=== PATIENT | female | born 2000 | race African-American/Black ===

== ENCOUNTER 2021-11-27 12:50 | Emergency (ER) | payer OTHER, SELFPAY ==
--- NOTE | ~2021-11-27 | XR_ITS ---
EXAMINATION: XR chest 2V DATE: 11/27/2021 14:12 INDICATION: Cough. TECHNIQUE: Frontal and lateral views of the chest were obtained. COMPARISON: None. FINDINGS: The chest demonstrates clear lungs without pneumonia, pleural effusion, or pneumothorax. Th e heart size is normal. IMPRESSION: 1. No acute cardiopulmonary disease. Reviewed, dictated and finalized at location A.
[2021-11-27 13:00] VITALS: BP 114/73; PULSE 109; RESP 20; TEMP 37.4; O2SAT 100
[2021-11-27] MEDS: ACETAMINOPHEN 500 MG TABLET 1000 MG PO (14:11)
--- NOTE | 2021-11-27 14:11 | ED.GENADULT ---
HPI - General Adult General Chief complaint: Weakness Stated complaint: chills weakness History of Present Illness HPI narrative: 20-year-old female history of anemia presented the emergency room complaints of sudden onset of chills and generalized weakness. Patient states that she developed pain to the left side of her neck approximately 2 hours ago that did not radiate. Patient has been placing hot packs on it for relief. Denies any sore throat or difficulty swallowing. Patient also endorses headache and body aches. Denies taking any medications to alleviate her symptoms. Related Data Allergies Allergy/AdvReac Type Severity Reaction Status Date / Time nitrofurantoin AdvReac Other Verified 11/27/21 13:44 [From Macrobid] Review of Systems Review of Systems: CONSTITUTIONAL: Reports fever and chills body aches EYES: Denies visual changes, redness, or discharge. ENT: Reports rhinorrhea, denies congestion, sore throat or ear pain CARDIOVASCULAR: Denies chest pain, palpitations, or edema. RESPIRATORY: Reports cough GASTROINTESTINAL: Denies abdominal pain, nausea, vomiting, or diarrhea. GENITOURINARY: Denies dysuria or hematuria. SKIN: Denies rash or itching. MUSCULOSKELETAL: Denies back pain, joint pain, or myalgia. NEUROLOGIC: Denies headache, numbness, dizziness, or weakness. PSYCHIATRIC: Denies anxiety or depression. Exam Narrative: GENERAL: Well-appearing, well-nourished, no physical limitations, and in no acute distress. HEAD: Normocephalic, atraumatic. EYES: Conjunctivae normal, PERRLA and EOMI. ENT: External nose normal, Nares clear, no rhinorrhea or epistaxis. Mucous membranes moist. Oropharynx without tonsillar hypertrophy exudate or other lesions. External ears normal, bilateral TMs normal bilaterally NECK: Supple. No adenopathy or masses. CHEST: Clear to auscultation. No respiratory distress. No wheezes rales or rhonchi. No tenderness. HEART: Regular rate and rhythm. No murmur heard. Normal peripheral pulses. ABDOMEN: Soft, nontender, nondistended, normal active bowel sounds. EXTREMITIES: Normal range of motion. No edema. No clubbing or cyanosis SKIN: Warm, dry, no rash. No noted wounds NEURO: No focal deficits. Alert and oriented x3. MAEW. CN's II-XI intact bilaterally, normal gait PSYCH: Cooperative. Normal mood and affect. Course Vital Signs Vital signs: Vital Signs Temperature 37.4 C 11/27/21 13:00 Pulse Rate 109 H 11/27/21 13:00 Respiratory Rate 20 11/27/21 13:00 Blood Pressure 114/73 11/27/21 13:00 Pulse Oximetry 100 11/27/21 13:00 Oxygen Delivery Room Air 11/27/21 13:00 Temperature 37.4 C 11/27/21 13:00 Pulse Rate 109 H 11/27/21 13:00 Respiratory Rate 20 11/27/21 13:00 Blood Pressure 114/73 11/27/21 13:00 Pulse Oximetry 100 11/27/21 13:00 Oxygen Delivery Room Air 11/27/21 13:00 Medical Decision Making Vital Signs Vital Signs: Vital Signs Temperature 37.4 C 11/27/21 13:00 Pulse Rate 109 H 11/27/21 13:00 Respiratory Rate 20 11/27/21 13:00 Blood Pressure 114/73 11/27/21 13:00 Pulse Oximetry 100 11/27/21 13:00 Oxygen Delivery Room Air 11/27/21 13:00 Temperature 37.4 C 11/27/21 13:00 Pulse Rate 109 H 11/27/21 13:00 Respiratory Rate 20 11/27/21 13:00 Blood Pressure 114/73 11/27/21 13:00 Pulse Oximetry 100 11/27/21 13:00 Oxygen Delivery Room Air 11/27/21 13:00 Lab Data Result diagrams: 11/27/21 14:37 11/27/21 15:43 Labs: Lab Results 11/27/21 11/27/21 11/27/21 Range/Units 14:37 14:37 15:43 WBC 17.1 H (4.5-10.0) K/mm3 RBC 4.36 (4.2-5.4) M/mm3 Hgb 10.9 L (12.0-15.0) g/dL Hct 36.2 L (37.0-47.0) % MCV 83.0 (80-100) fl MCH 25.0 L (26-34) pg MCHC 30.1 L (32-36) g/dl RDW 16.3 H (11.5-14.5) % Plt Count 372 (150-375) k/mm3 MPV 10.2 (7.4-10.4) fl Immature Gran % (Auto) 0.4 (0-0.5) % Neut % (Auto) 90.2 H (45.5-73.
[2021-11-27 14:50] LABS: Basophils Percent Auto 0.2 % (0.2-1.2); Eosinophils Percent Auto 0.1 % (0-4.4); Hematocrit 36.2 % (37.0-47.0); Hemoglobin 10.9 g/dL (12.0-15.0); Immature Granulocyte Absolute 0.06 K/mm3 (0.00-0.031); Immature Granulocyte Percent A 0.4 % (0-0.5); Lymphocytes Absolute Auto 0.82 K/mm3 (0.9-3.2); Lymphocytes Percent Auto 4.8 % (18.3-44.2); Mean Corpuscular HGB Conc 30.1 g/dl (32-36); Mean Platelet Volume 10.2 fl (7.4-10.4); Monocytes Absolute Auto 0.7 K/mm3 (0.1-0.6); Monocytes Percent Auto 4.3 % (2.6-8.5); Neutrophils Absolute Auto 15.4 K/mm3 (1.3-6.7); Neutrophils Percent Auto 90.2 % (45.5-73.1); Platelet Count Result 372 k/mm3 (150-375); Red Blood Count 4.36 M/mm3 (4.2-5.4); Red Cell Distribution Width 16.3 % (11.5-14.5); White Blood Count 17.1 K/mm3 (4.5-10.0)
[2021-11-27 15:21] LABS: SARS-CoV-2 RNA PCR Negative
[2021-11-27] MEDS: SODIUM CHLORIDE 0.9% IV 1,000 ML 999 ML IV CONT (15:40)
[2021-11-27 16:02] LABS: Alanine Aminotransferase 13 U/L (6-35); Albumin Level 4.7 g/dL (3.5-5.1); Alkaline Phosphatase 108 U/L (38-126); Anion Gap 11 mmol/L (8-16); Aspartate Amino Transferase 41 U/L (14-36); Bilirubin,Total 0.5 mg/dL (0.2-1.3); Blood Urea Nitrogen 12 mg/dL (7-17); Calcium 8.9 mg/dL (8.4-10.2); Carbon Dioxide 24 mmol/L (22-30); Chloride 101 mmol/L (98-107); Estimated CRCL calculation 81 ml/min; Estimated Glomerular Filt Rate > 60; Glucose 118 mg/dL (65-110); Potassium 3.6 mmol/L (3.4-5.0); Sodium 136 mmol/L (137-145)
[2021-11-27 16:27] LABS: Monoscreen Negative (Negative); Negative Monotest Control Negative (Negative); Positive Monotest Control Positive (Positive)
[2021-11-27 16:31] LABS: Appearance Urine Clear (Clear); Bilirubin Urine Negative (Negative); Blood Urine Trace-lysed (Negative); Color Urine Yellow (Yellow); Glucose Urine UA Negative (Negative); Ketones Urine Negative (Negative); Leukocyte Esterase Ur Negative LEU/UL (Negative); Nitrate Urine Negative (Negative); Protein Urine Negative (Negative); Specific Grav Ur <= 1.005 (1.001-1.035); Urobilinogen Urine 0.2 mg/dL (<2.0)
[2021-11-27 16:33] LABS: RBC Urine 0-2 /hpf (0-2); Squamous Epithelial Cell Urine Rare /hpf (Few); WBC Urine 0-3 /hpf
[2021-11-27 16:43] LABS: Add Urine Microscopic? YES
[2021-11-27 17:20] VITALS: BP 125/78; PULSE 110; RESP 16; TEMP 37.2; O2SAT 100
== END 2021-11-27 17:20 | disposition home or self-care (01) ==
PROVIDERS: Emergency Provider Nurse Practitioner Family
DX: R50.9 Fever, unspecified (principal); Z20.822 Contact with and (suspected) exposure to COVID-19; D64.9 Anemia, unspecified
CPT/HCPCS: 36415; 71046; 80053; 81001; 81025; 83605; 85025; 86308; 96360; 99283; A9270; C9803; J7030; U0003; U0005